=== PATIENT | female | born 1975 | race Caucasian/White ===

== ENCOUNTER → 2019-07-19 | Outpatient (CLI) | payer BC ==
--- NOTE | 2019-07-19 10:15 | REP ---
MRI LEFT ANKLE: TECHNIQUE: Sagittal proton density, STIR, axial proton density fat sat, T1, coronal proton density, STIR. The Achilles, anterior tibial, flexor hallucis longus, flexor digitorum longus, and peroneal tendons all appear intact. There is enlargement with scattered ill-defined high signal involving the posterior tibial tendon with mild surrounding fluid compatible with mild to moderate tendinitis and tenosynovitis. There may be some mild fraying/partial tearing at the level of the tibiotalar joint. Anterior and posterior talofibular, calcaneofibular, tibiofibular, and deltoid ligaments are intact. Plantar tendon is intact without significant plantar fasciitis. Increased signal and fluid is seen in the sinus tarsi which may indicate sinus tarsi syndrome. Mild fluid is seen at the margins of the tibiotalar joint. There is mild chondromalacia at the talar dome with minimal tiny subchondral cyst in the medial talar dome. Mild subchondral marrow edema is seen in the inferior talus and head of the talus. IMPRESSION: Mild to moderate tendinitis/tenosynovitis posterior tibial tendon with possibly mild partial tearing at the level of the tibiotalar joint. No other evidence of tendon or ligament tear. 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 Mild diffuse chondromalacia at the talar dome with tiny subchondral cyst in the medial talar dome. There is mild subchondral marrow edema in the inferior talus and head of the talus. Mild joint fluid is seen at the margins of the tibiotalar joint. Electronically Signed by Jann Delgado MD 07/19/2019 04:36 P
== END ==
LOC: M RAD 07:55
PROVIDERS: ATTEND Podiatrist
DX: M76.822 Posterior tibial tendinitis, left leg (principal)